=== PATIENT | female | born 1970 | race Caucasian/White ===

== ENCOUNTER 2025-04-17 10:09 | Outpatient (AMB) | payer OTHER, SELFPAY ==
[2025-04-17 10:17] VITALS: BMI 40.3
--- NOTE | 2025-04-17 10:17 | A.PHYSOV_ITS ---
Vital Signs 04/17/25 10:17 Height 5 ft 4 in Weight 235 lb BMI 40.3 Intake Visit Reasons: NPV Angela Ref- hand paresthesia & neck pain Intake Note: Patient is a 55 year old female in office today as new patient for neck pain. Patient states her pain has been chronic for over 1 year. Patient experiencing pain, numbness in arm in both arms and increased headaches. Awning Frame Maker Required: No Allergies azithromycin Allergy (Unknown, Verified 04/17/25 10:21) Unknown lisinopril Allergy (Unknown, Verified 04/17/25 10:21) Unknown HPI Comments Details: History of Present Illness The patient is a 55 year old female presenting for evaluation of worsening neck and shoulder pain with numbness in her arms. Her symptoms began in 2022 with shoulder pain, and an initial x-ray of her neck revealed bilateral foraminal stenosis. She underwent physical therapy for both her neck and shoulder, which aggravated her symptoms. A subsequent MRI revealed a near-complete tear of the rotator cuff, a torn biceps muscle, and significant cartilage damage, which led to shoulder surgery in August 2023. Post-operatively, her symptoms initially improved but have progressively worsened as her activity level increased. The patient currently reports constant pain from her neck into her shoulder, with bilateral hand numbness that awakens her from sleep nightly. She also experiences some numbness in her legs, constant headaches, and occasional dizziness. Her pain is rated a 3/10 at rest and worsens with activities such as caring for her horses, cooking, doing her hair, and using a computer. Paresthesias affect both arms; the right arm becomes numb while driving or writing, and the left is more affected during sleep. She can find certain neck and arm positions to alleviate the numbness. She reports associated arm weakness and a lack of dexterity, causing her to drop things more often. Her sleep is significantly disturbed, getting only 2-3 hours of sleep at a time before being awakened by numbness. She takes meloxicam for other shoulder problems, which she feels provides some, but insufficient, relief for her neck pain. 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 I reviewed the referring provider's no prior consultation. Pain Description - Onset: The patient reports her symptoms have been getting steadily worse since her shoulder surgery in August 2023 as her activity has increased. - Location: The patient experiences constant pain from her neck into her shoulder. - Radiation: Paresthesias radiate into both arms and hands, and she reports some numbness in her legs. - Character: The pain is associated with numbness, tingling, weakness, and decreased dexterity in her fingers. - Severity: Pain is currently a 3-4/10. - Exacerbating factors: Pain worsens with activity, including lifting, cooking, doing her hair, using a computer at work, driving, and writing. - Relieving factors: She can find certain neck and arm positions to alleviate the numbness, and meloxicam provides partial relief. - Timing: Pain is described as constant, with nocturnal numbness severe enough to wake her from sleep. Results - Neck X-ray (2022): Showed bilateral foraminal stenosis. - Shoulder MRI (prior to 2023 surgery): Showed a torn rotator cuff, torn biceps muscle, and cartilage damage. [facility] Surgical History (Updated 04/17/25 @ 10:23 by Mary Kate Hernandez MA) H/O shoulder surgery (~08/2023) History of knee replacement Social History (Updated 04/14/25 @ 16:23 by Zeinab Moscoso MA) Alcohol intake: current Alcohol intake frequency: holidays/special occasions only Patient Tobacco Use Status: Never used Tobacco Review of Systems Narrative Review of Systems - Neurological: Reports constant headaches, occasional dizziness, bilateral upper extremity numbness and tingling, and some numbness in her legs. Reports subjective arm weakness and decreased finger dexterity. - Musculoskeletal: Reports constant pain from neck to shoulder. Denies significant pain on shoulder palpation but reports discomfort with arm elevation, worse on the right. - Constitutional: Reports significant sleep disturbance due to nocturnal paresthesias. Physical Exam Exam Exam: Physical Exam Cervical Spine: Examination of her cervical spine, there is no visible swelling or deformity. She is tender to bilateral upper trapezius. She has limited range of motion at end range throughout. Special Tests: Axial Compression test: Negative Spurlings test: Negative Lhermitte's sign is Negative Upper Extremities: Full range of motion bilateral upper extremities. She has mild positive Neer testing bilaterally. Full range of motion of her elbow wrist and hand. Equal customs consultant strength bilaterally. Neuro: Sensation: Intact to upper extremities bilateral to light touch Strength C5 (Elbow Flexion): 5/5 on the left and 5/5 on the right. C6 (Elbow Ext): 5/5 on the left and 5/5 on the right. C7 (Elbow Ext): 5/5 on the left and 5/5 on the right. C8 (Finger Flex): 5/5 on the left and 5/5 on the right. T1 (Finger Abd/Add): 5/5 on the left and 5/5 on the right. DTR: C5 (Biceps): Left 2 Right 2 C6 (Brachioradialis): Left 2 Right 2 C7 (Triceps): Left 2 Right 2 Henry sign: Negative No pathologic clonus. No involuntary movement. Vital Signs: BMI result Body Mass Index 40.3 Assessment & Plan Assessment & Plan (1) Cervical radiculopathy: Code(s): M54.12 - Radiculopathy, cervical region Category: Medical (2) Cervicalgia: Code(s): M54.2 - Cervicalgia Category: Medical Plan Pain Management - Affect: The patient's pain and associated symptoms cause significant sleep disturbance, waking her multiple times per night. - Analgesia: She takes meloxicam, which provides partial relief. Pain is currently a 3-4 out of 10. A new prescription for gabapentin was provided to help with neuropathic symptoms. - Adverse Effects: The potential for gabapentin to cause sleepiness was discussed, which the patient viewed as a potential benefit for her insomnia. - Activities of Daily Living: Symptoms interfere with sleep, driving, writing, computer use, cooking, personal grooming, and caring for her horses. - Aberrant Drug-Related Behaviors: The patient reports using medication only as needed, stating her body adjusts to medications quickly. Plan Patient was informed and verbally consented to the use of an ambient scribe for clinic note documentation during this visit. 1. Cervicalgia With Cervical Radiculopathy The patient's symptoms of neck pain radiating into her arms, bilateral paresthesias, headaches, and positive Spurling's sign are highly suggestive of cervical radiculopathy, likely secondary to her known foraminal stenosis. To further evaluate for nerve impingement from discs or stenosis, a cervical spine MRI will be ordered. To manage her neuropathic symptoms and associated insomnia, she will start gabapentin 100 mg at bedtime, with instructions to titrate up to 300 mg (3 pills) as needed for symptom relief. Advised on using ice for acute pain and inflammation, versus heat for stiffness. Follow-up will be scheduled after the MRI to review the results and discuss further treatment options. 2. Insomnia The patient's sleep is significantly disrupted by nocturnal paresthesias. The prescribed gabapentin is intended to address the underlying neuropathic symptoms and should also help improve sleep due to its sedative side effect. 3. Right Shoulder Pain The patient has ongoing right shoulder pain despite a recent (August 2023) surgical repair of her rotator cuff and biceps tendon. While carpal tunnel syndrome is a less likely differential, the current symptoms are more suggestive of a cervical origin. The planned cervical MRI will help clarify if the shoulder pain is referred from the neck. She will continue taking meloxicam as needed for pain. Discussion Notes I discussed with the patient that her symptoms of arm numbness and pain are highly suggestive of a nerve issue originating in her neck, such as a pinched nerve or disc problem, especially given her history of foraminal stenosis. I explained that an MRI of her cervical spine is the best diagnostic step to visualize the nerves and discs to determine the cause of her symptoms. We discussed management options in the interim, including a new prescription for gabapentin to help with nerve pain and numbness. I instructed her to start with 100 mg at night and that she could increase the dose to a maximum of three pills (300 mg) at night if needed, using it as needed for symptom control. We also reviewed the use of ice for inflammation and pain versus heat for stiffness. I informed her that the MRI department will contact her to obtain insurance authorization and schedule the scan. We will have her return for a follow-up visit to review the MRI results and determine the next steps in her treatment plan. Patient Instructions - An order has been placed for an MRI of your neck. The imaging department will call you to schedule the appointment. - I have sent a prescription for Gabapentin to your pharmacy. Start by taking one 100 mg pill at bedtime to help with numbness and sleep. If needed, you may increase this to two or three pills at night. - Do not take more than three Gabapentin pills per night. You can use this medication as needed when symptoms are worse. - For pain and swelling, it is best to use ice on the affected area, such as your neck or shoulder. If you are just feeling stiff, you can use heat. - Continue taking Meloxicam as you have been for your shoulder pain. - Please schedule a follow-up appointment after your MRI is completed so we can review the results and discuss the next steps for your care. Orders: Orders MR cervical spine wo con Today M54.12 - Radiculopathy, cervical region Medications: New gabapentin 100 mg PO BEDTIME 30 caps 0RF 30 days M54.12 - Radiculopathy, cervical region, M54.2 - Cervicalgia Coding Level of Care Code Tele New Pt Level 4 (88957) Diagnoses Cervical radiculopathy M54.12 Cervicalgia M54.2
--- OUTSIDE RECORDS SUMMARY | 2025-04-17 12:09 | XMS_ITS | Clinical Summary ---
Author Organization 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 4 Active levalbuterol (XOPENEX HFA) 45 mcg/actuation inhaler Inhale 1 Puff into the lungs every 4 hours as needed for Wheezing. 4 Active amoxicillin (AMOXIL) 500 mg capsule Take 4 Capsules by mouth See Admin Instructions. Take 4 capsules by mouth 1 hour prior to dental appointment 3 Active meclizine (ANTIVERT) 12.5 mg tablet Take 1 Tablet by mouth 3 times daily as needed for Other (vertigo). 2 Active OMEPRAZOLE ORAL Take 1 Tab by mouth as needed. otc Active meloxicam (MOBIC) 15 mg tablet Take 1 tablet (15 mg total) by mouth 1 (one) time each day. 4 Active valsartan-hydro CHLOROthiazide (DIOVAN-HCT) 80-12.5 mg per tablet Take 1 tablet by mouth 1 (one) time each day. 30 tablet 11 5 Active ondansetron (ZOFRAN) 4 mg tablet TAKE 1 TABLET BY MOUTH EVERY 8 HOURS FOR UP TO 7 DAYS NEEDED FOR NAUSEA Active semaglutide (Wegovy) 2.4 mg/0.75 mL injection penIndications: Morbid obesity ([facility] V24, [facility] V28) Inject 2.4 mg under the skin every 7 (seven) days. 3 mL 3 5 03/31/20 25 tirzepatide, weight loss, (Zepbound) 2.5 mg/0.5 mL injectionIndica tions:Morbid obesity ([facility] V24, [facility] V28) Inject 0.5 mL (2.5 mg total) under the skin every 7 (seven) days. 2 mL 5 04/16/20 25 Active Problems Problem Noted Date Diagnosed Date Neuroforaminal stenosis of cervical spine 2024 Elevated hemoglobin A1c 12/09/2024 Hypertriglyceridemia 12/09/2024 Localized swelling, mass and lump, neck 12/29/19 24 Mixed hyperlipidemia 12/29/2023 Needle phobia 12/29/2023 Primary hypertension 03/22/2022 Morbid obesity [place] [place], [facility] V28) 2011 Vertigo 10/17/2011 Asthma 09/02/2010 Encounters Date Type Department Care Team Description 03/17/2025 3:45 PM EST Office Visit Adult Medicine [address] [id number] [place] Damian PA Morbid obesity ([facility] V24, [facility] V28) (Primary Dx); Needle phobia; Primary hypertension; Neuroforaminal stenosis of cervical spine; Hand paresthesia from Last 3 Months Immunizations Immunization Administration Dates Next Due Tdap Tetanus diptheria acell ular pertussis (Boostrix; Adacel) 7yo and older 12/29/2023,10/17/2011 Surgical History Surgery Date Site/Laterality Comments WISDOM TOOTH EXTRACTION PROCEDURE: HISTORICAL WISDOM TEETH EXTRACTION TOTAL KNEE ARTHROPLASTY 04/30/2021 Right PROCEDURE: HISTORICAL TOTAL KNEE REPLACE; COMMENT: Merari Bailey TOTAL KNEE ARTHROPLASTY 04/2022 Left PROCEDURE: HISTORICAL TOTAL KNEE REPLACE; COMMENT: Dr. Lynn NEAL SHOULDER SURGERY 08/2023 Right PROCEDURE: HISTORICAL SHOULDER SURGERY Medical History Medical History Date Comments Reactive airway disease DX:React darrel airway disease Vertigo DX:Vertigo Elevated hemoglobin A1c 12/09/2024 Hypertriglyceridemia 12/09/2024 Family History Medical History Relation Name Comments Meniere's disease Aunt 1 paternal Other: PMR Aunt 2 paternal-on mariah roids-stress fx Hypertension Brother 1/2 brother Diabetes Father COVID ALS Maternal Grandfather Stroke Maternal Grandmother former smoker ALS Mother at 46 Lung cancer Uncle 1 smoker-Mom's br other Other: etoh Uncle 2 paternal and Pg f Relation Name Status Comments Aunt 1 Aunt 2 Brother Alive Father (Age 71) Maternal Grandfather Maternal Grandmother Mother Paternal Grandfather Paternal Grandmother Sister Alive Uncle 1 Uncle 2 Social History Tobacco Use Types Packs/Day Years Used Date Smoking Tobacco: Never Smokeless Tobacco: Never Tobacco Cessation:Counseling Given: Not Answered Alcohol Use Standard Drinks/Week Comments Yes 0 (1 standard drink = 0.6 oz pur e alcohol) occasional Comments No Sex and Gender Information Value Date Recorded Sex Assigned at Not on file Legal Sex Female 1:07 AM EST Gender Identity Not on file Sexual Orientation Not on file Obstetrics History Last Filed Vital Signs Vital Sign Reading Time Taken Comments Blood Pressure 114/72 03/17/2025 3:44 PM EST Pulse 74 03/17/2025 3:44 PM EST Temperature 36.7 C (98.1 F) 12/09/2024 10:24 AM EDT Respiratory Rate - - Oxygen Saturation - - Inhaled Oxygen Concentration - - Weight 110 kg (241 lb 12.8 oz) 03/17/2025 3:44 P M EST Height 162.6 cm (5' 4 ) 03/17/2025 3:44 PM EST Body Mass Index 41.5 03/17/2025 3:44 PM EST Plan of Treatment Upcoming Encounters Date Type Department Care Team (Late st Contact Info) Description 06/17/2025 4:30 PM EST Office Visit Adult Medicine - [place] [address] [place] [phone] [place] Damian PA [address] [place] [address] Health Maintenance Due Date Last Done Comments Breast Cancer Screening 1972 Colorectal Cancer Screening: Colonoscopy 1972 Hepatitis B Vaccines (1 of 3 - 19+ 3-dose series) 1991 Pneumococcal Vaccine: 50+ Years (1 of 2 - PCV) 1991 Cervical Cancer Screening: P ap Smear 1993 RSV Immunization Adult Patients (1 - Risk 50-74 years 1-dose series) 2022 Zoster Vaccines (1 of 2) 2022 HIV Screening 04/23/2022 Social Influencers of Health Screening 04/23/2022 Depression Screening 05/15/2024 COVID-19 Vaccine (1 - 2024-2 6 season) 2025 Influenza Vaccine (#1) 2025 Hypertension/CHF/CAD Annual BMP Blood Test 12/09/2025 12/09/2024, 12/29/2023, 12/29/2023 Cholesterol Screening (Lipid Panel) 12/09/2029 12/09/2024, 12/29/2023, 12/29/2023 DTaP,Tdap,and Td Vaccines (3 - Td or Tdap) 12/28/2033 12/29/2023, 10/17/2011 Hepatitis C Screening Completed 12/29/2023 HIB Vaccines Aged Out No longer eligi ble based on patient's age to complete this topic HPV Vaccines Aged Out No longer eligi ble based on patient's age to complete this topic Hepatitis A Vaccines Aged Out No long er eligible based on patient's age to complete this topic IPV Vaccines Aged Out No longer eligi ble based on patient's age to complete this topic MMR Vaccines Aged Out No longer eligi ble based on patient's age to complete this topic Meningococcal ACWY Vaccine Aged Out N o longer eligible based on patient's age to complete this topic Meningococcal B Vaccine Aged Out No l onger eligible based on patient's age to complete this topic RSV Immunization Patients Under 20 months Aged Out No longer eligible b ased on patient's age to complete this topic Varicella Vaccines Aged Out No longer eligible based on patient's age to complete this topic Procedures Procedure Name Priority Date/Time Associated Diagnosis Comments COMPREHENSIVE METABOLIC PANEL Routine 12/09/2024 10:55 AM EDT Primary hypertension LIPID PANEL WITH REFLEX TO DIRECT LDL Routine 12/09/2024 10:55 AM EDT Mixed hyperlipidemia HEPATITIS C SCREENING Routine 12/29/2023 from Last 3 Months or Most Recently Relevant to Health Maintenance Results * (ABNORMAL) Lipid panel with reflex to direct LDL (12/09/2024 10:55 AM EDT) Cholesterol 200 0 - 200 mg/dL LAB CHEMISTRY METHOD 12/09/2024 2:03 PM EDT [facility] Triglycerides 418(H) 0 - 150 mg/dL LAB CHEMISTRY METHOD 12/09/2024 2:03 PM EDT [facility] HDL 49 >=40 mg/dL LAB CHEMISTRY METHOD 12/09/2024 2:03 PM EDT [facility] LDL Calculated 67 0 - 100 mg/dL LAB CHEMISTRY METHOD 12/09/2024 2:03 PM EDT [facility] Comment:Unable to calculate when triglycerides >400 mg/dL. VLDL Cholesterol Rojelio 83.6 mg/dL LAB CHEMISTRY METHOD 12/09/2024 2:03 PM EDT [facility] Comment:Unable to calculate when triglycerides >400 mg/dL. Non HDL Chol. (LDL+VLDL) 151(H) <145 mg/dL LAB CHEMISTRY METHOD 12/09/2024 2:03 PM EDT [facility] Comment:Unable to calculate when triglycerides >400 mg/dL. Chol/HDL Ratio 4.1 0.0 - 4.4 LAB CHEMISTRY METHOD 12/09/2024 2:03 PM EDT [facility] Blood Venous blood specimen / Unknown Venipuncture / Unknown 12/09/2024 10:55 AM EDT 12/09/2024 10:55 AM EDT us [place] [facility] LAB BLOOD ORDERABLES Final Res ult [facility] [address] [place] [address], [place] [phone] * Comprehensive metabolic panel (12/09/2024 10:55 AM EDT) Sodium 135 133 - 145 mmol/L LAB CHEMISTRY METHOD 12/09/2024 2:[address] [facility] Potassium 4.3 3.5 - 5.5 mmol/L LAB CHEMISTRY METHOD 12/09/2024 2:[address] [facility] Chloride 102 96 - 110 mmol/L LAB CHEMISTRY METHOD 12/09/2024 2:[address] [facility] CO2 28 21 - 32 mmol/L LAB CHEMISTRY METHOD 12/09/2024 2:[address] [facility] Anion Gap 5 3 - 11 LAB CHEMISTRY METHOD 12/09/2024 2:[address] [facility] Glucose 90 70 - 100 mg/dL LAB CHEMISTRY METHOD 12/09/2024 2:[address] [facility] BUN 17 5 - 25 mg/dL LAB CHEMISTRY METHOD 12/09/2024 2:[address] [facility] Creatinine 0.81 0.50 - 1.10 mg/dL LAB CHEMISTRY METHOD 12/09/2024 2:[address] [facility] eGFR 87 >=60 mL/min/1. 73m2 LAB CHEMISTRY METHOD 12/09/2024 2:[address] [facility] Comment:Calculation based on the Chronic Kidney Disease Epidemiology Collaboration (CKD-EPI) equation refit without adjustment for race. BUN/Creatinine Ratio 21.0 LAB CHEMISTRY METHOD 12/09/2024 2:[address] [facility] Calcium 9.7 8.5 - 10.5 mg/dL LAB CHEMISTRY METHOD 12/09/2024 2:[address] [facility] AST (SGOT) 25 10 - 42 unit/L LAB CHEMISTRY METHOD 12/09/2024 2:[address] [facility] ALT (SGPT) 51 10 - 60 unit/L LAB CHEMISTRY METHOD 12/09/2024 2:03 PM EDT [facility] Alkaline Phosphatase 78 42 - 121 unit/L LAB CHEMISTRY METHOD 12/09/2024 2:03 PM EDT [facility] Total Protein 7.4 6.0 - 8.0 g/dL LAB CHEMISTRY METHOD 12/09/2024 2:03 PM EDT [facility] Albumin 4.2 3.2 - 5.0 g/dL LAB CHEMISTRY METHOD 12/09/2024 2:03 PM EDT [facility] Total Bilirubin 0.4 0.0 - 1.4 mg/dL LAB CHEMISTRY METHOD 12/09/2024 2:03 PM EDT [facility] Blood Venous blood specimen / Unknown Venipuncture / Unknown 12/09/2024 10:55 AM EDT 12/09/2024 10:55 AM EDT [place] [facility] LAB BLOOD ORDERABLES Final Res ult [facility] [address] [place] [address], * Hepatitis C Screening (12/29/2023) Pathologist [facility] Hepatitis C Screening abstracted Historical Provider HEALTH MAINTENANCE Final Result from Last 3 Months or Most Recently Relevant to Health Maintenance Insurance [employer] [facility] Care Teams 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
== END 2025-04-17 10:40 | disposition home or self-care (01) ==
LOC: HO.HPHYS 10:09
PROVIDERS: PCP Internal Medicine; Visit Provider Physician Assistant
DX: M54.12 Radiculopathy, cervical region (principal); M54.2 Cervicalgia
CPT/HCPCS: 99204